=== PATIENT | female | born 2000 | race Caucasian/White ===

== ENCOUNTER → 2024-12-26 19:04 | Outpatient (CLI) | payer OTHER, SELFPAY ==
--- NOTE | 2024-12-26 19:12 | DI.MRI.S_ITS ---
PROCEDURE: MR ANKLE RT WO CON INDICATIONS: RIGHT ANKLE PAIN TECHNIQUE: Noncontrast sagittal T1 spin echo and T2 fast spin echo with fat saturation, axial proton density fast spin echo and T2 fast spin echo with fat saturation, coronal T1 spin echo and T2 fast spin echo with fat saturation through the ankle/hindfoot. COMPARISON: None. FINDINGS: Image quality: Excellent. Bones and joints: Small corticated ossification is seen adjacent to the distal fibular tip with mild surrounding cystic changes and edema, likely the sequela of a subacute or chronic avulsion fracture. Lobular ganglion cyst at the lateral aspect of the ankle overlying the anterior talofibular ligament measures up to 10 x 4 x 9 mm. No acute trabecular bone injury. No hindfoot coalitions. No osteochondral injuries of the talar dome. Medial structures: The deltoid ligament and the spring ligament complex are intact. The posterior tibialis, flexor digitorum longus, and flexor hallucis longus tendons are intact. The posterior tibial neurovascular bundle appears normal within the tarsal tunnel, without extrinsic mass effect. Lateral structures: The ossification at the distal fibular tip includes the fibular attachments of the anterior talofibular ligament and possibly the calcaneofibular ligament. Posterior talofibular ligament remains intact. The anterior and posterior tibiofibular ligaments are intact. The peroneus longus and brevis tendons demonstrate normal location and morphology. The sinus tarsi demonstrates normal fatty signal. Anterior structures: The tibialis anterior, extensor hallucis longus, and extensor digitorum longus tendons appear intact. Posterior and plantar structures: Achilles tendon is intact. The proximal plantar fascia is intact. No abductor digiti minimi muscle atrophy to suggest Ruff neuropathy. IMPRESSION: 1. Small avulsion fracture at the distal fibular tip involving the fibular attachment of the anterior talofibular ligament and possibly the calcaneofibular ligament, which is likely chronic versus late subacute. 2. Lobular ganglion cyst superficial to the anterior talofibular ligament measures up to 10 x 9 x 4 mm. 3. No acute trabecular bone injury. No acute ligament or tendon tearing is seen. Approved by: Denilson Crane M.D. on 12/29/2024 at 12:24
== END ==
LOC: MRI 19:10
DX: S82.831A Other fracture of upper and lower end of right fibula, initial encounter for closed fracture (principal); M67.471 Ganglion, right ankle and foot; M25.571 Pain in right ankle and joints of right foot
CPT/HCPCS: 73721

== ENCOUNTER → 2025-06-29 18:39 | Outpatient (CLI) | payer OTHER, SELFPAY ==
--- NOTE | 2025-06-29 18:42 | DI.MRI.S_ITS ---
PROCEDURE: MR PELVIS WO CON INDICATIONS: SI Disorders; Coccyx Pain TECHNIQUE: Noncontrast axial and oblique coronal T1 spin echo and STIR through the sacroiliac joints. COMPARISON: [facility], CR, XR SACROILIAC JOINTS 3+ VIEWS, 03/16/2025, 13:42. FINDINGS: Image quality: Excellent. Bones: The sacroiliac joints appear intact. No adjacent bone marrow edema to suggest active sacroiliitis. No bony ankylosis. No suspicious marrow space occupying lesions. Soft tissues: No presacral masses. Rectum appears normal in caliber and wall thickness. No pathologic free pelvic fluid. IMPRESSION: Normal exam . No evidence of active sacroiliitis. No bony erosion or ankylosis. No presacral soft tissue abnormalities. Dictated by: Matheus Uribe M.D. on 06/30/2025 at 15:01 Approved by: Matheus Uribe M.D. on 06/30/2025 at 15:03
== END ==
DX: M53.3 Sacrococcygeal disorders, not elsewhere classified (principal)
CPT/HCPCS: 72195